=== PATIENT | female | born 1940 | race Caucasian/White ===

== ENCOUNTER 2021-01-08 12:30 | Emergency (ER) | payer MEDICARE, OTHER ==
[2021-01-08] MEDS ORDERED: Sodium Chloride 0.9% 10 ML Syringe FLUSH PRN (12:53)
[2021-01-08] MEDS ORDERED: methylPREDNISolone Sodium Succinate 125 MG/2 ML SDV IVPUSH PRN (12:56)
[2021-01-08] MEDS ORDERED: diphenhydrAMINE 50 MG/ML SDV IVPUSH PRN (12:56)
[2021-01-08] MEDS ORDERED: Famotidine 20 MG/2 ML SDV IVPUSH PRN (12:56)
[2021-01-08] MEDS ORDERED: EPINEPHrine 1 MG/ML SDV IM PRN (12:56)
[2021-01-08] MEDS ORDERED: Casirivimab 1,200 MG, Imdevimab 1,200 MG in Sodium Chloride 0.9% 230 ML IV ONE (12:57)
[2021-01-08] MEDS ORDERED: Sodium Chloride 0.9% 10 ML Syringe FLUSH SCH (13:00)
--- NOTE | 2021-01-08 13:08 | EDM.PDOC ---
ED HPI GENERAL MEDICAL PROBLEM - General Chief Complaint: General Stated Complaint: LIGHTHEADED/COVID + Time Seen by Provider: 01/08/21 12:35 Source of Information: Reports: Patient History Limitations: Reports: No Limitations - History of Present Illness INITIAL COMMENTS - FREE TEXT/NARRATIVE: The patient presents with generalized weakness, cough and lightheadedness. She was diagnosed with COVID 19 on . She says she is not feeling well. This morning she was lightheaded. She has a slight cough and she has generalized weakness. She has a history of hypertension. She has no heart disease or lung disease. She does not smoke. She has no fever or chills. She has no chest pain or shortness of breath. She has no abdominal pain, nausea, vomiting or diarrhea. Onset: Gradual Duration: Day(s): Severity: Moderate Improves with: Reports: None Worsens with: Reports: None Associated Symptoms: Reports: Cough. 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 Denies: Shortness of Breath Cardiovascular: Reports: Lightheadedness. Denies: Chest Pain Endocrine: Reports: No Symptoms GI/Abdominal: Reports: No Symptoms : Reports: No Symptoms Musculoskeletal: Reports: No Symptoms Skin: Reports: No Symptoms Neurological: Reports: No Symptoms ED EXAM, GENERAL - Physical Exam Exam: See Below Exam Limited By: No Limitations General Appearance: Alert, No Apparent Distress Ears: Normal External Exam Nose: Normal Inspection Head: Atraumatic, Normocephalic Neck: Normal Inspection Respiratory/Chest: No Respiratory Distress, Lungs Clear, Normal Breath Sounds Cardiovascular: Regular Rate, Rhythm, No Edema, No Murmur GI/Abdominal: Soft, Non-Tender, No Organomegaly, No Mass Back Exam: Normal Inspection Extremities: Normal Inspection Neurological: Alert, Oriented, No Motor/Sensory Deficits #1 Interpretation EKG Date: 01/08/21 Time: 13:04 Rhythm: NSR Rate (Beats/Min): 69 [place]: Normal P-Wave: Present QRS: Normal ST-T: Normal QT: Normal Course - Vital Signs Last Recorded V/S: Last Vital Signs Temp 98.2 F 01/08/21 13:26 Pulse 59 L 01/08/21 14:15 Resp 25 H 01/08/21 14:15 BP 133/74 01/08/21 14:15 Pulse Ox 100 01/08/21 14:15 - Orders/Labs/Meds Orders: Active Orders 24 hr Category Date Time Status Cardiac Monitoring [RC] . DIRECTED Care 01/08/21 12:54 Active EKG Documentation Completion [RC] STAT Care 01/08/21 12:55 Active Oxygen Therapy [RC] PRN Care 01/08/21 12:54 Active Peripheral IV Care [RC] . DIRECTED Care 01/08/21 12:55 Active Vital Signs [RC] Q15M Care 01/08/21 12:57 Active EPINEPHrine [Adrenalin] Med 01/08/21 12:56 Active 0.3 mg IM ONETIME PRN Famotidine [Pepcid] Med 01/08/21 12:56 Active 20 mg IVPUSH ONETIME PRN Sodium Chloride 0.9% [Saline Flush] Med 01/08/21 12:53 Active 10 ml FLUSH ASDIRECTED PRN Sodium Chloride 0.9% [Saline Flush] Med 01/08/21 13:00 Active 30 ml FLUSH ASDIRECTED diphenhydrAMINE [Benadryl] Med 01/08/21 12:56 Active 50 mg IVPUSH ONETIME PRN methylPREDNISolone Sod Succ [Solu-MEDROL] Med 01/08/21 12:56 Active 125 mg IVPUSH ONETIME PRN Peripheral IV Insertion Adult [OM.PC] Stat Oth 01/08/21 12:53 Ordered Medication Orders Diphenhydramine HCl (Benadryl) 50 mg IVPUSH ONETIME PRN PRN Reason: hypersensitivity reaction Epinephrine HCl (Adrenalin) 0.3 mg IM ONETIME PRN PRN Reason: hypersensitivity reaction Famotidine (Pepcid) 20 mg IVPUSH ONETIME PRN PRN Reason: hypersensitivity reaction Methylprednisolone Sodium Succinate (Solu-Medrol) 125 mg IVPUSH ONETIME PRN PRN Reason: hypersensitivity reaction Sodium Chloride (Saline Flush) 10 ml FLUSH ASDIRECTED PRN PRN Reason: Keep Vein Open Last Admin: 01/08/21 12:57 Dose: 10 ml Documented by: JENNY Sodium Chloride (Saline Flush) 30 ml FLUSH ASDIRECTED BRANT Labs: Laboratory Tests 01/08/21 01/08/21 01/08/21 Range/Units 12:55 12:55 12:55 WBC 5.63 (3.98-10.04) K/mm3 RBC 5.20 (3.98-5.22) M/mm3 Hgb 15.1 (11.2-15.7) gm/dl Hct 45.6 H (34.1-44.9) % MCV 87.7 D (79.4-94.8) fl MCH 29.0 (25.6-32.2) pg MCHC 33.1 (32.2-35.5) g/dl RDW Std Deviation 46.2 (36.4-46.3) fL Plt Count 182 (182-369) K/mm3 MPV 10.7 (9.4-12.3) fl Neut % (Auto) 57.5 (34.0-71.1) % Lymph % (Auto) 23.8 (19.3-51.7) % [place] % (Auto) 17.8 H (4.7-12.5) % Eos % (Auto) 0 L (0.7-5.8) Baso % (Auto) 0.7 (0.1-1.2) % Neut # (Auto) 3.24 (1.56-6.13) K/mm3 Lymph # (Auto) 1.34 (1.18-3.74) K/mm3 [place] # (Auto) 1.00 H (0.24-0.36) K/mm3 Eos # (Auto) 0.00 L (0.04-0.36) K/mm3 Baso # (Auto) 0.04 (0.01-0.08) K/mm3 Manual Slide Review Abnormal smear PT 10.6 (9.7-12.0) SECONDS INR 0.99 APTT 30.9 (21.7-31.4) SECONDS D-Dimer, Quantitative 0.39 (0.19-0.50) mg/L Sodium 130 L (136-145) mEq/L Potassium 4.7 (3.5-5.1) mEq/L Chloride 94 L (98-107) mEq/L Carbon Dioxide 26 (21-32) mEq/L Anion Gap 14.7 (5-15) BUN 20 H (7-18) mg/dL Creatinine 1.4 H (0.55-1.02) mg/dL Est Cr Clr Drug Dosing 26.51 mL/min Estimated GFR (MDRD) 36 (>60) mL/min BUN/Creatinine Ratio 14.3 (14-18) Glucose 137 H (83-115) mg/dL Lactic Acid (0.4-2.0) mmol/L Calcium 9.2 (8.5-10.1) mg/dL Ferritin (8-252) ng/ml Total Bilirubin 0.3 (0.2-1.0) mg/dL AST 36 (15-37) U/L ALT 24 (14-59) U/L Alkaline Phosphatase 88 (46-116) U/L Lactate Dehydrogenase 266 H (81-234) U/L Troponin I < 0.017 (0.00-0.056) ng/mL C-Reactive Protein 9.3 H* (<1.0) mg/dL Total Protein 8.3 H (6.4-8.2) g/dl Albumin 3.8 (3.4-5.0) g/dl Globulin 4.5 gm/dL Albumin/Globulin Ratio 0.8 L (1-2) 01/08/21 01/08/21 Range/Units 12:55 12:55 WBC (3.98-10.04) K/mm3 RBC (3.98-5.22) M/mm3 Hgb (11.2-15.7) gm/dl Hct (34.1-44.9) % MCV (79.4-94.8) fl MCH (25.6-32.2) pg MCHC (32.2-35.5) g/dl RDW Std Deviation (36.4-46.3) fL Plt Count (182-369) K/mm3 MPV (9.4-12.3) fl Neut % (Auto) (34.0-71.1) % Lymph % (Auto) (19.3-51.7) % [place] % (Auto) (4.7-12.5) % Eos % (Auto) (0.7-5.8) Baso % (Auto) (0.1-1.2) % Neut # (Auto) (1.56-6.13) K/mm3 Lymph # (Auto) (1.18-3.74) K/mm3 [place] # (Auto) (0.24-0.36) K/mm3 Eos # (Auto) (0.04-0.36) K/mm3 Baso # (Auto) (0.01-0.08) K/mm3 Manual Slide Review PT (9.7-12.0) SECONDS INR APTT (21.7-31.4) SECONDS D-Dimer, Quantitative (0.19-0.50) mg/L Sodium (136-145) mEq/L Potassium (3.5-5.1) mEq/L Chloride (98-107) mEq/L Carbon Dioxide (21-32) mEq/L Anion Gap (5-15) BUN (7-18) mg/dL Creatinine (0.55-1.02) mg/dL Est Cr Clr Drug Dosing mL/min Estimated GFR (MDRD) (>60) mL/min BUN/Creatinine Ratio (14-18) Glucose (83-115) mg/dL Lactic Acid 1.7 (0.4-2.0) mmol/L Calcium (8.5-10.1) mg/dL Ferritin 1275 H (8-252) ng/ml Total Bilirubin (0.2-1.0) mg/dL AST (15-37) U/L ALT (14-59) U/L Alkaline Phosphatase (46-116) U/L Lactate Dehydrogenase (81-234) U/L Troponin I (0.00-0.056) ng/mL C-Reactive Protein (<1.0) mg/dL Total Protein (6.4-8.2) g/dl Albumin (3.4-5.0) g/dl Globulin gm/dL Albumin/Globulin Ratio (1-2) Meds: Medications Generic Name Dose Route Start Last Admin Trade Name Freq PRN Reason Stop Dose Admin Diphenhydramine HCl 50 mg 01/08/21 12:56 Benadryl IVPUSH ONETIME PRN hypersensitivity reaction Epinephrine HCl 0.3 mg 01/08/21 12:56 Adrenalin IM ONETIME PRN hypersensitivity reaction Famotidine 20 mg 01/08/21 12:56 Pepcid IVPUSH ONETIME PRN hypersensitivity reaction Methylprednisolone Sodium Succinate 125 mg 01/08/21 12:56 Solu-Medrol IVPUSH ONETIME PRN hypersensitivity reaction Sodium Chloride 10 ml 01/08/21 12:53 01/08/21 12:57 Saline Flush FLUSH 10 ml ASDIRECTED PRN Administration Keep Vein Open Sodium Chloride 30 ml 01/08/21 13:00 Saline Flush FLUSH ASDIRECTED BRANT Discontinued Medications Generic Name Dose Route Start Last Admin Trade Name Freq PRN Reason Stop Dose Admin Non-Formulary Medication 1,200 250 mls @ 250 mls/hr 01/08/21 12:57 01/08/21 13:25 mg/ Non-Formulary Medication IV 01/08/21 13:56 250 mls/hr 1,200 mg/ Sodium Chloride ONETIME ONE Administration - Re-Assessments/Exams Free Text/Narrative Re-Assessment/Exam: 01/08/21 13:09 I ordered an IV saline lock, O2 PRN, labs, CXR and regeneron IV. Her EKG shows a NSR with no acute changes. 01/08/21 13:58 Her CXR shows some areas of atelectasis or early pneumonia in both lung bases. Her CBC looks good. Her PT and PTT were negative. Her D-dimer was negative. Her Na was low at 130. Her creatinine was a little elevated at 1.4. Her lactic acid was normal at 1.7. Her LDH was elevated at 266. Her troponin is negative. Her CRP is elevated at 9.3. The patient is a candidate for regeneron. I spoke with the patient to provider information about regeneron treatment. I offered the patient the "Patient and Caregiver RAFFAELE Regeneron Fact Sheet" to read and review. I stated the drug has been approved by an emergency use authorization process and has not fully been FDA reviewed or approved. The patient meets the EUA requirements. I discussed there are other potential treatment options that are currently not FDA approved to treat COVID 19. Offered opportunity to ask questions and all questions were answered. The patient voiced understanding and agreed to proceed with treatment. 01/08/21 15:25 She did good with the treatment. I will discharge her home. Departure - Departure Time of Disposition: 15:25 Disposition: Home, Self-Care 01 Condition: Good Clinical Impression: COVID-19 - Discharge Information *PRESCRIPTION DRUG MONITORING PROGRAM REVIEWED*: Not Applicable *COPY OF PRESCRIPTION DRUG MONITORING REPORT IN PATIENT SOFIA: Not Applicable Referrals: Ashley Lopez [employer]IT[employer] MANAGER [Primary Care Provider] - 3 Days Forms: ED Department Discharge Additional Instructions: Drink plenty of fluids. Take tylenol or motrin for any fever. Please return if you are worse. Sepsis Event Note (ED) - Evaluation Sepsis Screening Result: No Definite Risk - Focused Exam Vital Signs: Vital Signs Temp Pulse Resp BP Pulse Ox 01/08/21 14:15 59 L 25 H 133/74 100 01/08/21 14:00 61 24 H 124/59 L 99 01/08/21 13:45 64 22 H 125/78 96 01/08/21 13:26 98.2 F 69 18 138/99 H 96 01/08/21 12:39 98.0 F 75 24 H 164/79 H 95 - My Orders Last 24 Hours: My Active Orders 01/08/21 12:53 Sodium Chloride 0.9% [Saline Flush] 10 ml FLUSH ASDIRECTED PRN Peripheral IV Insertion Adult [OM.PC] Stat 01/08/21 12:54 Cardiac Monitoring [RC] . DIRECTED Oxygen Therapy [RC] PRN 01/08/21 12:55 EKG Documentation Completion [RC] STAT Peripheral IV Care [RC] . DIRECTED 01/08/21 12:56 EPINEPHrine [Adrenalin] 0.3 mg IM ONETIME PRN Famotidine [Pepcid] 20 mg IVPUSH ONETIME PRN diphenhydrAMINE [Benadryl] 50 mg IVPUSH ONETIME PRN methylPREDNISolone Sod Succ [Solu-MEDROL] 125 mg IVPUSH ONETIME PRN 01/08/21 12:57 Vital Signs [RC] Q15M 01/08/21 13:00 Sodium Chloride 0.9% [Saline Flush] 30 ml FLUSH ASDIRECTED - Assessment/Plan Last 24 Hours: My Active Orders 01/08/21 12:53 Sodium Chloride 0.9% [Saline Flush] 10 ml FLUSH ASDIRECTED PRN Peripheral IV Insertion Adult [OM.PC] Stat 01/08/21 12:54 Cardiac Monitoring [RC] . DIRECTED Oxygen Therapy [RC] PRN 01/08/21 12:55 EKG Documentation Completion [RC] STAT Peripheral IV Care [RC] . DIRECTED 01/08/21 12:56 EPINEPHrine [Adrenalin] 0.3 mg IM ONETIME PRN Famotidine [Pepcid] 20 mg IVPUSH ONETIME PRN diphenhydrAMINE [Benadryl] 50 mg IVPUSH ONETIME PRN methylPREDNISolone Sod Succ [Solu-MEDROL] 125 mg IVPUSH ONETIME PRN 01/08/21 12:57 Vital Signs [RC] Q15M 01/08/21 13:00 Sodium Chloride 0.9% [Saline Flush] 30 ml FLUSH ASDIRECTED
--- NOTE | 2021-01-08 13:32 | CR ---
Chest: Portable view of the chest was obtained. Comparison: Prior chest x-ray of 10/26/18. Heart size and mediastinum are normal. Questionable areas of increased density within both lung bases are seen. Difficult to exclude minimal areas of atelectasis or small areas of pneumonia. Upper lungs are clear. Heart size and mediastinum are normal. Mild degenerative spurring is noted within the spine. Impression: 1. Questionable areas of atelectasis or possibly early areas of pneumonia within both lung bases. 2. Nothing acute is otherwise seen. Diagnostic code #3 MTDD
[2021-01-08 14:22] VITALS: BP 133/74; PULSE 59
== END 2021-01-08 15:35 | disposition home or self-care (01) ==
LOC: JD.ED 12:30
DX: U07.1 COVID-19 (principal); I10 Essential (primary) hypertension; E03.9 Hypothyroidism, unspecified; Z88.8 Allergy status to other drugs, medicaments and biological substances; Z79.899 Other long term (current) drug therapy
CPT/HCPCS: 36415; 71045; 80053; 82728; 83605; 83615; 84484; 85025; 85379; 85610; 85730; 86140; 93005; 99285; J7050; Q0243; 93010; 99284